=== PATIENT | female | born 2000 | race African-American/Black ===

== ENCOUNTER 2019-11-22 12:35 | Emergency (ER) | payer BC, SELFPAY ==
[2019-11-22] MEDS ORDERED: Dexamethasone 10 MG/ML VIAL ONE (13:05)
[2019-11-22] MEDS ORDERED: Clindamycin 300 MG/2 ML VIAL ONE (13:05)
== END 2019-11-22 13:47 | disposition home or self-care (01) ==
LOC: MADERS 12:35
DX: J02.0 Streptococcal pharyngitis (principal)
CPT/HCPCS: 96372; 99282; J1100; J3490